=== PATIENT | female | born 1990 | race African-American/Black ===

== ENCOUNTER 2021-01-31 01:49 | Emergency (ER) | payer BC, SELFPAY ==
--- NOTE | ~2021-01-31 | XR_ITS ---
EXAMINATION: XR hand LT min 3V DATE: 01/31/2021 02:32 INDICATION: Left hand injury and pain. TECHNIQUE: 3 views of left hand were obtained. COMPARISON: None. FINDINGS: Bone alignment is normal. There are nondisplaced extra-articular stellate fractures of thir d and fourth distal phalanges. Joint spaces are normal. IMPRESSION: 1. Nondisplaced extra-articular stellate fractures of third and fourth distal phalanges. Reviewed, dictated and finalized at location A. IMPRESSION: 1. Nondisplaced extra-articular stellate fractures of third and fourth distal p halanges.
[2021-01-31 01:57] VITALS: BP 134/82; PULSE 108; RESP 17; TEMP 36.5; O2SAT 96
[2021-01-31] MEDS: HYDROcodone/acetaminophen (*CRX) 5-325 MG TABLET 1 TAB PO (02:45)
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
[2021-01-31] MEDS: CEPHALEXIN 500 MG CAPSULE PO (04:04)
== END 2021-01-31 04:21 | disposition home or self-care (01) ==
PROVIDERS: Emergency Provider Emergency Medicine
DX: S61.213A Laceration without foreign body of left middle finger without damage to nail, initial encounter (principal); S61.215A Laceration without foreign body of left ring finger without damage to nail, initial encounter; S62.663A Nondisplaced fracture of distal phalanx of left middle finger, initial encounter for closed fracture; S62.665A Nondisplaced fracture of distal phalanx of left ring finger, initial encounter for closed fracture; W23.0XXA Caught, crushed, jammed, or pinched between moving objects, initial encounter
CPT/HCPCS: 12001; 29130; 73130; 99283; 99284; A9270

== ENCOUNTER 2022-05-24 12:31 | Observation (INO) | payer OTHER, SELFPAY ==
[2022-05-24] VITALS (26 sets, daily range): BP systolic 108–119; BP diastolic 63–71; PULSE 74–99; O2SAT 95–100; BMI 37.3
--- NOTE | 2022-05-24 12:40 | OBADM ---
This patient, Olivia Agarwal, admitted to the OB room OB Post 116 for observation. Patient/family oriented to hospital policies and general routines including ID bracelet, bed and alarms, visiting hours, pain management, procedures, bathroom and other care routines, personal items, smoking policy, room service/diet, and visiting hours. Patient/Family are encouraged to report perceived risks to care and to ask questions if they do not understand what they are told or what they should do.
--- NOTE | 2022-05-24 13:41 | PC.NURSE ---
Dr Lindsay notified of adm c/o, VS, Lung sounds, FHt's and accucheck. Order for CBC and PO hydrate.
[2022-05-24 14:03] LABS: Basophils Percent Auto 0.1 % (0.2-1.2); Eosinophils Absolute Auto 0.2 K/mm3 (0-0.3); Eosinophils Percent Auto 2.4 % (0-4.4); Hematocrit 30.5 % (37.0-47.0); Hemoglobin 10.2 g/dL (12.0-15.0); Immature Granulocyte Absolute 0.06 K/mm3 (0.00-0.031); Immature Granulocyte Percent A 0.6 % (0-0.5); Lymphocytes Absolute Auto 1.49 K/mm3 (0.9-3.2); Lymphocytes Percent Auto 15.7 % (18.3-44.2); Mean Corpuscular HGB Conc 33.4 g/dl (32-36); Mean Corpuscular Hemoglobin 29.1 pg (26-34); Mean Corpuscular Volume 86.9 fl (80-100); Mean Platelet Volume 9.9 fl (7.4-10.4); Monocytes Absolute Auto 0.8 K/mm3 (0.1-0.6); Monocytes Percent Auto 8.2 % (2.6-8.5); Neutrophils Absolute Auto 6.9 K/mm3 (1.3-6.7); Platelet Count Result 228 k/mm3 (150-375); Red Blood Count 3.51 M/mm3 (4.2-5.4); Red Cell Distribution Width 13.5 % (11.5-14.5); White Blood Count 9.5 K/mm3 (4.5-10.0)
--- NOTE | 2022-05-24 14:23 | PC.NURSE ---
Dr Lindsay notified of CBC results and a slight improvement in dizziness. Ok to dc home and if patient feels like she needs further evaluation she is welcome to be evaluated in the ER.
[2022-05-24 15:45] LABS: Glucose Point of Care 102 mg/dl (65-105)
--- NOTE | 2022-05-26 07:30 | PM.OBTRLD ---
OB - Triage/Final Diagnosis Visit Information Comments/Additional reasons for admission: I have assessed the risk for this patient, Olivia Agarwal, and determined that she would benefit from observation care. Evaluation Laboratory results: Laboratory Tests 05/24/22 05/24/22 13:00 13:52 WBC 9.5 RBC 3.51 L Hgb 10.2 L Hct 30.5 L MCV 86.9 MCH 29.1 MCHC 33.4 RDW 13.5 Plt Count 228 MPV 9.9 Immature Gran % (Auto) 0.6 H Neut % (Auto) 73.0 Lymph % (Auto) 15.7 L [place] % (Auto) 8.2 Eos % (Auto) 2.4 Baso % (Auto) 0.1 L Lymph # (Auto) 1.49 [place] # (Auto) 0.8 H Eos # (Auto) 0.2 Baso # (Auto) 0.0 Abs Immat Gran (auto) 0.06 H Absolute Neuts (auto) 6.9 H Absolute Nucleated RBC 0.0 Nucleated RBC % 0.0 POC Capillary Glucose 102 Final Diagnosis (1) Dizziness: Code(s): R42 - Dizziness and giddiness Status: Acute (2) Twin : Code(s): O30.009 - Twin , unspecified number of placenta and unspecified number of amniotic sacs, unspecified trimester Status: Acute
== END 2022-05-24 14:37 | disposition home or self-care (01) ==
PROVIDERS: Admitting Provider Obstetrics & Gynecology; Visit Provider Obstetrics & Gynecology
DX: O26.892 Other specified pregnancy related conditions, second trimester (principal); R42 Dizziness and giddiness; O30.002 Twin pregnancy, unspecified number of placenta and unspecified number of amniotic sacs, second trimester; Z3A.23 23 weeks gestation of pregnancy
CPT/HCPCS: 36415; 82948; 85025; G0378; G0379

== ENCOUNTER 2022-09-07 08:26 | Outpatient (CLI) | payer BC, SELFPAY ==
[2022-09-07 09:50] LABS: Hematocrit 37.1 % (37.0-47.0); Hemoglobin 12.3 g/dL (12.0-15.0); Mean Corpuscular HGB Conc 33.2 g/dl (32-36); Mean Corpuscular Hemoglobin 28.5 pg (26-34); Mean Corpuscular Volume 85.9 fl (80-100); Mean Platelet Volume 10.4 fl (7.4-10.4); Platelet Count Result 228 k/mm3 (150-375); Red Blood Count 4.32 M/mm3 (4.2-5.4); Red Cell Distribution Width 15.5 % (11.5-14.5); White Blood Count 5.9 K/mm3 (4.5-10.0)
[2022-09-08 16:22] LABS: Rapid Plasma Reagin Non-Reactive (NonReactive)
== END 2022-09-07 08:27 | disposition home or self-care (01) ==
LOC: ANHLAB 08:29
PROVIDERS: Visit Provider Obstetrics & Gynecology
DX: O30.003 Twin pregnancy, unspecified number of placenta and unspecified number of amniotic sacs, third trimester (principal); Z3A.00 Weeks of gestation of pregnancy not specified
CPT/HCPCS: 36415; 85027; 86592; 86850; 86900; 86901

== ENCOUNTER 2022-09-07 20:30 | Inpatient (IN) | payer BC, SELFPAY ==
[2022-09-07] VITALS (10 sets, daily range): BP systolic 111–118; BP diastolic 58–62; PULSE 81–95; O2SAT 97–99; BMI 40.3
--- NOTE | 2022-09-07 20:32 | ECG_ITS ---
Measurements Intervals [place] Rate: 102 P: 47 CO: 152 QRS: 59 QRSD: 82 T: 0 QT: 311 QTc: 405 Interpretive Statements NORMAL SINUS RHYTHM NONSPECIFIC T-WAVE CHANGES NO PRIOR TRACING FOR COMPARISON Electronically Signed On 09-08-2022 12:51:51 DATA MANAGEMENT SPECIALIST by Ambreen Childs M.D.
[2022-09-08] VITALS (51 sets, daily range): BP systolic 81–119; BP diastolic 22–91; PULSE 53–144; RESP 12–16; TEMP 36.2–37; O2SAT 96–100
--- NOTE | 2022-09-08 01:54 | LDADM ---
This patient, Olivia Agarwal, was admitted to Labor/Delivery/Recovery 120 on 09/07/22 at 20:44. Plans for labor, pain management and were discussed with patient. Patient/family oriented to hospital policies and general routines including ID bracelet, bed and alarms, visiting hours, pain management, procedures, bathroom and other care routines, personal items, smoking policy, room service/diet and guest tray routines, security routines, and visiting hours. Patient/Family are encouraged to report perceived risks to care and to ask questions if they do not understand what they are told or what they should do. See OBIX for further documentation.
[2022-09-08] MEDS: LACTATED RINGERS 1,000 ML 125 ML IV CONT ×2 (06:18→07:25)
--- NOTE | 2022-09-08 06:26 | PC.NURSE ---
Addendum entered by Sierra Stauffer RN 09/08/22 06:30: This assessment was done 09/07/22 at 2100. Original Note: Patient presented to the Er with SOB, Palpatations and tachycardia and some cramping. EKG was performed in the ER and read by the ER MD. Patient was then send to OB for evaluation. Patient's HR on adm was in the 90's, mild shortness of breath was noted. Heart rate was reg on osculation and lungs were clear. Patient is scheduled to have a c/s tomorrow morning at 0730. Plan of care discussed.
--- NOTE | 2022-09-08 07:12 | P.PNAN_ITS ---
Anes - Initial Pre Proc Eval Procedure: Operation Date: 09/08/22 07:30 Proposed Procedures p Section - Verona Lindsay MD Date/Time: 09/08/22 07:12 Surgeon: Verona Lindsay MD Pre Op Diagnosis: SOB, Tachycardia Patient Data Age: 31 Gender: F Height: 1.73 m Weight: 120.3 kg Last Vital Signs Pulse 89 09/08/22 06:54 BP 111/68 09/08/22 06:54 Pulse Ox 97 09/07/22 21:38 O2 Del Method Room Air 09/07/22 21:30 Allergies Allergy/AdvReac Type Severity Reaction Status Date / Time No Known Allergies Allergy Verified 09/07/22 20:33 Home Medications Medication Instructions Recorded Confirmed Type aspirin 81 mg capsule 81 mg DAILY 05/24/22 05/24/22 History ferrous sulfate 142 mg (45 mg 142 mg PO DAILY 05/24/22 05/24/22 History iron) tablet,extended release (Slow Fe) vits no.126-ferrous fum 1 tablet DAILY 05/24/22 05/24/22 History 28 mg iron-folic acid 800 mcg tablet (Classic ) folic acid 1 mg tablet 1 mg PO DAILY 08/19/22 08/19/22 History Patient hx anesthesia problems: other (hx of high spinal) Family hx anesthesia problems: none Results Review: All pre-operative results and documents have been reviewed as part of the pre- operative evaluation. [facility] Past Medical History Medical History (Updated 05/26/22 @ 07:31 by Verona Lindsay MD) Patient denies significant medical history Surgical History Surgical History (Updated 09/08/22 @ 07:12 by Melo Powell MD) H/O laparoscopy History of section Family History Family History Father Hypertension Grandparent Breast cancer Grandparent Breast cancer Social History Social History Smoking status: Never smoker Substance use: never Lack of Transportation: No Lack of Food: Never True Current Housing: I Have Housing Concerned About Future Housing: No Difficulty Paying Gas/Electric Bills: No Difficulty Paying for Meds: No Currently Unemployed: No Education: Decline to Answer Difficulty w/ Childcare or Family Care: No Spiritual care concerns: No Anes - Eval Final PreProcedure Day of Procedure 09/08/22 07:12 Patient weight: obese Heart: regular rate and rhythm Lungs: clear to auscultation Airway: Mallampati scale class II Neurological: alert and oriented Last oral intake: >/= 8 hours ASA classification: II Emergent: no Anesthetic plan: proceed Anesthesia type and monitoring: regional spinal and standard monitoring Results Review: All pre-operative results and documents have been reviewed as part of the pre- operative evaluation. Informed Consent: The patient's anesthetic plan and its attendant risks and benefits were discussed with the patient/family/POA. Questions were solicited and answers provided to the satisfaction of the patient/family/POA.
--- NOTE | 2022-09-08 07:24 | PM.IMHP ---
H&P: HPI History of Present Illness Date/Time: 09/08/22 07:24 Chief Complaint: R CS twins Narrative: Olivia is a 31yo at 38.4 for repeat CS. She has a di/di spontaneous twin that has otherwise been uncomplicated. She did present last night to the ED with SOB that started with feeling of heart beating out of her chest. Workup was negative and sx resolved, she feels well this am. Review of Systems Review of Systems: All systems reviewed & are unremarkable except as noted in HPI and below PMFSH Past Medical History Medical History (Updated 09/08/22 @ 07:26 by Verona Lindsay MD) Patient denies significant medical history Surgical History Surgical History (Updated 09/08/22 @ 07:26 by Verona Lindsay MD) H/O laparoscopy History of section Family History Family History Father Hypertension Grandparent Breast cancer Grandparent Breast cancer Social History Social History Smoking status: Never smoker Substance use: never Lack of Transportation: No Lack of Food: Never True Current Housing: I Have Housing Concerned About Future Housing: No Difficulty Paying Gas/Electric Bills: No Difficulty Paying for Meds: No Currently Unemployed: No Education: Decline to Answer Difficulty w/ Childcare or Family Care: No Spiritual care concerns: No Meds Home Medications and Allergies Home Medications Medication Instructions Recorded Confirmed Type aspirin 81 mg capsule 81 mg DAILY 05/24/22 05/24/22 History ferrous sulfate 142 mg (45 mg 142 mg PO DAILY 05/24/22 05/24/22 History iron) tablet,extended release (Slow Fe) vits no.126-ferrous fum 1 tablet DAILY 05/24/22 05/24/22 History 28 mg iron-folic acid 800 mcg tablet (Classic ) folic acid 1 mg tablet 1 mg PO DAILY 08/19/22 08/19/22 History Allergies Allergy/AdvReac Type Severity Reaction Status Date / Time No Known Allergies Allergy Verified 09/07/22 20:33 Vital Signs Vital Signs - 24 hr 09/07/22 21:08 09/07/22 21:13 09/07/22 21:15 Pulse Rate 95 Blood Pressure 111/62 Blood Pressure [Left Arm] Pulse Oximetry 98 98 Oxygen Delivery 09/07/22 21:18 09/07/22 21:23 09/07/22 21:28 Pulse Rate Blood Pressure Blood Pressure [Left Arm] Pulse Oximetry 99 98 97 Oxygen Delivery 09/07/22 21:30 09/07/22 21:33 09/07/22 21:38 Pulse Rate 86 Blood Pressure 114/59 L Blood Pressure [Left Arm] Pulse Oximetry 98 97 Oxygen Delivery 09/08/22 02:30 09/08/22 02:45 09/08/22 06:28 Pulse Rate 82 72 89 Blood Pressure 116/68 119/65 111/68 Blood Pressure [Left Arm] Pulse Oximetry Oxygen Delivery 09/07/22 21:30 09/08/22 02:55 09/07/22 21:42 Pulse Rate 77 89 Blood Pressure Blood Pressure [Left Arm] 116/68 118/58 L Pulse Oximetry Oxygen Delivery Room Air 09/08/22 06:54 Pulse Rate 89 Blood Pressure Blood Pressure [Left Arm] 111/68 Pulse Oximetry Oxygen Delivery Exam Const: General: no acute distress Resp: Effort & Inspection: normal respiratory effort Auscultation: clear to auscultation bilaterally Cardio: Rate: regular rate Rhythm: regular rhythm GI: GI Palp: Yes Soft to palpation Extrem: General: normal to inspection Assessment and Plan Assessment and plan (1) Dichorionic diamniotic twin gestation: Code(s): O30.049 - Twin , dichorionic/diamniotic, unspecified trimester Status: Acute (2) History of delivery: Code(s): Z98.891 - History of uterine scar from previous surgery Status: Acute Plan SOB resolved- likely related to palpitations and/or anxiety FHT category 1 x2 Consented for CS after discussing RBA, will proceed GBS pos
[2022-09-08] MEDS: ceFAZolin 3 GM/D5W 100 ML 100 ML IVPB (07:25)
--- NOTE | 2022-09-08 08:36 | PM.OBPRVD ---
OB - Delivery Note Procedure Delivery date: 09/08/22 Procedure: Procedures Operation Date: 09/08/22 07:30 <No data on this case meets the specified criteria> repeat low transverse section Events: Breech Presentation (x2) and Multiple Gestation Route of delivery: Specimen: Yes (placenta) Quantitative Blood Loss (ml): 920 Anesthesia type: Spinal Disposition: Floor Complications: none Narrative: The patient was taken to the OR and received spinal anesthesia. She was placed in dorsal supine position with left lateral tilt. SCDs and acosta were placed. She was prepped and draped in the normal sterile fashion. A Pfannensteil skin incision was made through her prior scar, a small portion of keloid excised, and carried through to the underlying layer of fascia. The fascia was incised in the midline and then extended laterally using Felix scissors. The muscles were in the midline and the peritoneum was entered bluntly. The peritoneal incision was extended inferiorly and superiorly with care to avoid the bladder. The bladder blade was then inserted, the vesicouterine peritoneum was grasped, incised with Metzenbaum scissors, and a bladder flap created. The bladder blade was reinserted. A low transverse uterine incision was made with a scalpel and extended bluntly. AROM was performed on baby A and fluid was noted to be clear. The baby was delivered breech without difficulty. The baby's oropharynx was suctioned. After 30 seconds, the cord was clamped and cut and the infant was handed off. AROM was performed on baby B and the fluid was clear. Baby was delivered in breech presentation without difficulty. After delayed cord clamping the baby was handed off. Cord blood was obtained and the placenta was then removed manually. The uterus was exteriorized. A moist lap sponge was used to curette the endometrium. The uterine incision was then closed with two layers of 0-Vicryl in a running, locking fashion. Good hemostasis was noted after one additional [id number] suture. The posterior cul de sac was irrigated with normal saline and cleared of all clot and debris. The uterus was returned to the abdomen. Both lateral gutters were then irrigated. The rectus muscles were inspected and found to be hemostatic. The fascia was reapproximated using 0-Vicryl in running fashion. The subcutaneous tissue was irrigated with normal saline and made hemostatic with Bovie electrocautery. The skin was then closed with absorbable emely. Steri strips and a bandage were applied. The uterus was evacuated. The patient tolerated the procedure very well. All counts were correct. She was taken to the recovery room in good condition. Baby Date of : 09/08/22 Time of : 07:58 Weeks of gestation at delivery: 38 Infant gender: Female Weight (pounds): 6 Weight (ounces): 9 presentation: breech Placenta delivery description: Manual Removal Cord Vessel Description: 3 Vessels and Delayed Cord Clamping score one minute: 8 score five minutes: 9 Twins 2: Date of : 09/08/22 Time of : 08:00 Weeks of gestation at delivery: 38 gender: Female Weight (pounds): 6 Weight (ounces): 3 presentation: breech Placental delivery description: Manual Removal Cord Vessel Description: 3 Vessels and Delayed Cord Clamping score one minute: 9 score five minutes: 9
[2022-09-08] MEDS: OXYTOCIN 30 UNITS/NS 500 ML 30 UNITS/500 ML BAG 125 UNITS IV CONT (09:09)
--- NOTE | 2022-09-08 12:07 | PC.NURSE ---
On 09/08/22, the student, Jarrell, provided care and completed [facility] documentation on this patient. I have reviewed the student's documentation and agree with the findings.
[2022-09-08] MEDS: DEXTROSE 5%/0.45% SOD CHL 1,000 ML 125 ML IV CONT (13:11)
[2022-09-08] MEDS: KETOROLAC 30 MG/ML VIAL (*BKC) IV PUSH (13:11)
[2022-09-08] MEDS: SIMETHICONE 80 MG TAB.CHEW PO ×2 (13:11→17:33)
[2022-09-08] MEDS: diphenhydrAMINE HCl INJ 50 MG/ML VIAL 25 MG IV PUSH ×2 (13:47→19:35)
--- NOTE | 2022-09-08 14:21 | PC.NURSE ---
[id number] Introductions were made, then consulted with patient to assess needs related to after nursery RN called for assistance to room 120. Twin baby Debby Gonsales was latched with long draws, good suck/swallow/pausing was visualized and mother denied pain. Infant was detached related to the appearance of the nipple in the front of the infant's mouth. The nipple was not misshaped and was in the front of the mouth. It was reported that the infant had breastfed for 10 minutes and may be finished for now. [id number] Consulted with patient to assess needs related to . Mother works well with her infant with encouragement and is eager to learn. Reviewed working with infant, supporting breast and how to protect the nipples with an optimal deep latch, good/ different positioning, and good hand washing. Encouraged understanding the benefits of skin to skin, responding to feeding cues, frequencies of feeding 8-12 times in 24 hours (approximately 2-3 hours), duration of feedings, milk production, intake/output feeding sheet and signs of adequate intake encouraging swallowing at the breast. Reviewed the first 24 hours is a bit more challenging as the infants might be sleepy. Reviewed positioning and alignment, supporting breast, off-centered (asymmetrical latch) and leading with the chin with big, open, wide gape. Both infants were placed skin to skin and attempted at the breast. Twin Debby Gonsales is spitty and gagged up clearing fluid. Neither latched optimally at this time. Twin Edwardo Jade would demonstrate feeding cues, then when brought to the breast would not open with a big, wide gape. Nipple care reviewed with optimal latch, good positioning and using clean hands when feeding her infant and touching her breast. The skill of hand expressions was taught and mother demonstrated learning. Both infants were spoon fed 1/2 tsp of colostrum. Discussed the options of hand expression, manual expression and electric pumping. Mother hand expressed an additional 5mls of colostrum which were divided between two syringes and stored at room temperature for the next feeding if needed. Resources used to facilitate learning were used from the tool, mom and baby guide. Mother voiced understanding of the education shared, to call for assistance if the does not latch or if there is discomfort with . Reported to the primary RN.
--- NOTE | 2022-09-08 15:03 | OBPPTRN ---
1057-Patient transferred to post room #277 via stretcher. Support person present. Oriented to unit, room, information board, rooming in, admission packet and security measures. Patient verbalizes understanding.
--- NOTE | 2022-09-08 15:35 | PC.NURSE ---
[id number] Consulted with patient to assess needs related to . Mother works well with her infant. Reviewed working with , supporting breast and how to protect the nipples with an optimal deep latch and good positioning. Encouraged understanding the benefits of skin to skin, responding to feeding cues, frequencies of feeding 8-12 times in 24 hours (approximately 2-3 hours), duration of feedings, milk production, intake/output feeding sheet and signs of adequate intake encouraging swallowing at the breast. Reviewed positioning and alignment, supporting breast, off-centered (asymmetrical latch) and leading with the chin with big, open, wide gape. [place] Twin A was syringe fed 1ml of colostrum, then after a few attempts of stimulating with burping, massage touch and changing positions she latched optimally to the right breast in cross cradle position but gags and doesn't breastfeed. [place] Twin B is gaggy, spitty, sleepy and reluctant to wake and eat. Human milk was hand expressed by mother to syringe feed to her infants if they do not breastfeed. Mother voiced understanding of the education shared, to call for assistance if the infant does not latch or if there is discomfort with . Reported to the primary RN.
[2022-09-08] MEDS: HYDROcodone/acetaminophen (*CRX) 5-325 MG TABLET 1 TAB PO ×2 (17:33→22:02)
[2022-09-08] MEDS: DOCUSATE SODIUM 100 MG CAPSULE PO (17:33)
[2022-09-08] MEDS: IBUPROFEN 600 MG TABLET PO (19:34)
[2022-09-09 00:15] VITALS: BP 94/53; PULSE 79; RESP 16; TEMP 37.1; O2SAT 95
[2022-09-09] MEDS: HYDROcodone/acetaminophen (*CRX) 5-325 MG TABLET 1 TAB PO ×2 (01:54→04:57)
[2022-09-09] MEDS: SIMETHICONE 80 MG TAB.CHEW PO ×6 (01:58→22:34)
[2022-09-09] MEDS: IBUPROFEN 600 MG TABLET PO ×2 (04:57→11:21)
[2022-09-09 05:10] VITALS: BP 104/55; PULSE 89; RESP 18; TEMP 36.9; O2SAT 99
[2022-09-09 05:31] LABS: Basophils Percent Auto 0.1 % (0.2-1.2); Eosinophils Absolute Auto 0.1 K/mm3 (0-0.3); Eosinophils Percent Auto 1.4 % (0-4.4); Hematocrit 30.2 % (37.0-47.0); Immature Granulocyte Absolute 0.03 K/mm3 (0.00-0.031); Immature Granulocyte Percent A 0.4 % (0-0.5); Mean Corpuscular HGB Conc 33.1 g/dl (32-36); Mean Corpuscular Volume 84.6 fl (80-100); Mean Platelet Volume 10.7 fl (7.4-10.4); Monocytes Absolute Auto 0.8 K/mm3 (0.1-0.6); Monocytes Percent Auto 10.4 % (2.6-8.5); Neutrophils Absolute Auto 5.8 K/mm3 (1.3-6.7); Neutrophils Percent Auto 73.7 % (45.5-73.1); Platelet Count Result 168 k/mm3 (150-375); Red Blood Count 3.57 M/mm3 (4.2-5.4); Red Cell Distribution Width 15.1 % (11.5-14.5); White Blood Count 7.9 K/mm3 (4.5-10.0)
[2022-09-09 07:30] VITALS: BP 114/64; PULSE 99; RESP 14; TEMP 36.8; O2SAT 99
--- NOTE | 2022-09-09 07:30 | PC.NURSE ---
PT introductions made and plan of care discussed per post op c section, pain management, breast feeding, daily care activities. PT sole recipient of such instructions and no barriers to learning identified at this time. PT received such instructions this shift per one to one discussion, mom baby care guide and demonstrations. PT verbalized understanding of such care.
--- NOTE | 2022-09-09 08:11 | P.PNOB_ITS ---
OB - PN: Subj Subjective Date/time seen: 09/09/22 08:11 Patient comments: no complaints, pain well controlled, tolerating diet and flatus present [place] baby status: doing well OB - PN: Obj Data Labs 09/09/22 04:54 Labs: Laboratory Results - last 24 hr 09/09/22 04:54 WBC 7.9 RBC 3.57 L Hgb 10.0 L Hct 30.2 L MCV 84.6 MCH 28.0 MCHC 33.1 RDW 15.1 H Plt Count 168 MPV 10.7 H Immature Gran % (Auto) 0.4 Neut % (Auto) 73.7 H Lymph % (Auto) 14.0 L [place] % (Auto) 10.4 H Eos % (Auto) 1.4 Baso % (Auto) 0.1 L Lymph # (Auto) 1.10 [place] # (Auto) 0.8 H Eos # (Auto) 0.1 Baso # (Auto) 0.0 Abs Immat Gran (auto) 0.03 Absolute Neuts (auto) 5.8 Absolute Nucleated RBC 0.0 Nucleated RBC % 0.0 OB - PN A/P Plan day: 1 Plan: routine care Time Spent With Patient Time: Total time spent is greater than 50% in coordination of care (as documented) at patient's floor/unit and/or counseling patient: Time with patient: less than 15 minutes Review of Systems Review of Systems: All systems reviewed & are unremarkable except as noted in HPI and below Exam Narrative: Fundus firm. Vaginal flow controlled. Incision dry and intact. Negative homans. No redness, warmth, or pain of lower ext. Const: General: comfortable Chest: Breast/axilla inspection: normal inspection of the breasts Resp: Effort & Inspection: normal respiratory effort Auscultation: clear to auscultation bilaterally Cardio: Rate: regular rate GI: GI Palp: Yes Soft to palpation Psych: Appearance: grossly normal Affect: normal affect Attitude: cooperative Thought content: Yes Normal thought content present Judgement: Good judgement present (Psych)
--- NOTE | 2022-09-09 08:38 | WPDANLDPN2 ---
Anes-Prog Note L&D Date/Time: 09/09/22 08:38 Comfortable throughout: section Neuraxial method: spinal Epidural/Spinal procedure site: clean & non-tender Neuro status: Neuro function grossly intact. Cardiovascular status: normal Respiratory status: normal Airway patency: baseline Mental status: baseline Post-Op hydration status: normal Vital Signs: Last Vital Signs Temp 98.4 F 09/09/22 05:10 Pulse 89 09/09/22 05:10 Resp 18 09/09/22 05:10 BP 104/55 L 09/09/22 05:10 Pulse Ox 99 09/09/22 05:10 O2 Del Method Room Air 09/08/22 11:15 Pain score (VAS): 5 I/O: Intake & Output 09/08/22 09/09/22 09/09/22 23:59 07:59 15:59 Intake Total 1615 1200 Output Total 300 4100 Balance 1315 -2900 Post-procedural complaints: none Patient feedback: Patient satisfied with anesthetic care.
--- NOTE | 2022-09-09 08:39 | WPDANLDNPN2 ---
Anes-Prog Note L&D-Neuraxial Date/Time: 09/09/22 08:39 Neuraxial medications: intrathecal PF morphine Opiod-related complaints: none Patient feedback: Patient satisfied with post-operative pain management.
[2022-09-09] MEDS: DOCUSATE SODIUM 100 MG CAPSULE PO ×2 (08:53→18:36)
[2022-09-09] MEDS: MULTIVIT/MIN/PREN/FOL AC/IRON TABLET 1 TAB PO (08:53)
[2022-09-09] MEDS: HYDROcodone/acetaminophen (*CRX) 10-325 MG TABLET 1 TAB PO ×3 (08:57→14:26)
--- NOTE | 2022-09-09 15:15 | PC.NURSE ---
[id number] Consulted with mother to assess needs. Mother is in the restroom and infants are in the nursery. Mother states she is concerned about her supply and mentioned Twin Debby Gonsales latched last night. Mother will call for assistance with the next . [phone] Consulted with patient to assess needs related to . Mother demonstrated her experience with working with her babies. Reviewed supporting breast and how to protect the nipples with an optimal deep latch, good positioning and good hand washing. Encouraged understanding the benefits of skin to skin, responding to feeding cues, frequencies of feeding 8-12 times in 24 hours (approximately 2-3 hours), duration of feedings, milk production, intake/output reviewing the pie demonstration and signs of adequate intake listening and watching for swallowing at the breast. Reviewed positioning and alignment, supporting breast, off-centered (asymmetrical latch) and leading with the chin with big, open, wide gape. Infant nai Gonsales latched optimally to the left breast in football position for 10 minutes without pain to mother or misshaping the nipple. Mother and RN visualized and heard swallowing. After 5 minutes twin Edwardo Jade was demonstrating feeding cues so she was put back to the breast after having an earlier 10 minute breastfeed. Twin Edwardo Jade was latched to the right breast using football positioning and she breastfed for an additional 20 minutes with swallowing, no pain to mother and no misshaped nipple when she detached. Nipple care reviewed with optimal latch, good positioning and using clean hands when feeding her infant and touching her breast. Resources used to facilitate learning were used from the tool, mom and baby guide. Mother voiced understanding of the education shared, to call for assistance if the infant does not latch or if there is discomfort with . Reported to the primary RN.
[2022-09-09] MEDS: oxyCODONE/ACETAMINOPHEN (*CRX) 10-325 MG TABLET 1 TAB PO ×2 (18:36→22:34)
[2022-09-09 18:40] VITALS: BP 127/65; PULSE 77; RESP 18; TEMP 36.6; O2SAT 100
[2022-09-10] MEDS: KETOROLAC 10 MG TABLET PO ×4 (00:26→21:31)
[2022-09-10] MEDS: SIMETHICONE 80 MG TAB.CHEW PO ×6 (02:36→23:30)
[2022-09-10] MEDS: oxyCODONE/ACETAMINOPHEN (*CRX) 10-325 MG TABLET 1 TAB PO ×2 (02:36→07:16)
[2022-09-10 07:07] VITALS: BP 105/67; PULSE 73; RESP 18; TEMP 36.7; O2SAT 98
[2022-09-10] MEDS: MULTIVIT/MIN/PREN/FOL AC/IRON TABLET 1 TAB PO (07:16)
[2022-09-10] MEDS: DOCUSATE SODIUM 100 MG CAPSULE PO ×2 (07:16→15:25)
--- NOTE | 2022-09-10 07:26 | PM.OBPNVD ---
OB - PN: Subj Subjective Date/time seen: 09/10/22 07:26 Patient comments: no complaints and incisional pain [place] baby status: doing well and nursing well [place] feeding status: exclusively breast feeding Narrative: Pain significant on norco 10s, also gas pain, milk in, nursing twins well. OB - PN: Obj Data Labs 09/09/22 04:54 OB - PN A/P Assessment and Plan (1) Dichorionic diamniotic twin gestation: Code(s): O30.049 - Twin , dichorionic/diamniotic, unspecified trimester Status: Acute (2) delivery delivered: Code(s): O82 - Encounter for delivery without indication Status: Acute Plan day: 2 Plan: routine care Comments: Home tomorrow simethicone, ambulation Time Spent With Patient Time: Total time spent is greater than 50% in coordination of care (as documented) at patient's floor/unit and/or counseling patient: Exam Narrative: NAD abdomen soft, appropriately tender, incision CDI Extremities nontender with 1+ edema
[2022-09-10] MEDS: oxyCODONE/ACETAMINOPHEN (*CRX) 5-325 MG TABLET 1 TABLET PO ×4 (11:21→23:30)
--- NOTE | 2022-09-10 13:41 | PC.NURSE ---
[id number] Consulted with patient to assess needs related to her twin girls. Mother led conversation with her experience with feeding baby so far. Mother works well with her infants. Mother believes she has both infants latched effectively using the football positioning, however; assessment has RN concerned related to not visualizing swallowing with a good suck/swallow ratio, mouths are less than 90 degrees open, and twins fall to sleep easily at the breast. Reviewed working with infant, supporting breast and how to protect the nipples with an optimal deep latch and good positioning. Encouraged understanding the benefits of skin to skin, responding to feeding cues, frequencies of feeding 8-12 times in 24 hours (approximately 2-3 hours), duration of feedings, milk production, intake/output feeding sheet and signs of adequate intake encouraging swallowing at the breast. Reviewed positioning and alignment, supporting breast, off-centered (asymmetrical latch) and leading with the chin with big, open, wide gape. Twin A Kalie is more eager to go to the breast with behavior frantically looking for the breast. She is challenging to relax with her tongue down and mouth open. Twin B Dru is sleepy and reluctant. Mother was encouraged to feed her infants the colostrum she had pumped out of her breast and fed each twin 1.5mls of human milk. Reviewed rotating breast sides and twins to stimulate breast for a good milk supply. Twin B Dru relaxed, then latched optimally to the left breast and good suck/swallow ratios were reviewed. Reviewed watching for good suck/swallow ratios with mother. was able to maintain latch without discomfort to mother. Nipple care reviewed with optimal latch, good positioning and using clean hands when feeding her and touching her breast. Resources used to facilitate learning were used from the tool, [facility] website, mom and baby guide. Mother voiced understanding of the education shared, to call for assistance if the infants do not latch or if there is discomfort with . Reported to the primary RN. [id number] Consulted with mother to assess needs. Upon entering the room mother is attempting to latch Twin A Kalie to the left breast and is pumping the right breast. [place] is sleepy and reluctant. RN stimulated with changing positioning, massage touch, burping and syringe feeding the remainder of the breastmilk from a syringe that contained 3mls. was no longer frantic and crying. RN assisted mother with getting her infant to the left breast using football positioning to practice watching and listening for swallowing at the breast. Mother denies pain, mouth of is 130-150 degrees open, rounded cheek line, chin buried and nose near the breast. Reviewed with mother how to stimulate infant to maintain active effective . Pumping was assessed. Breast pump provided last evening due to Twin B having ineffective . Instructions given on cleaning, care, usage, that there should be no pain, pumping schedule for milk production, collection, and storage of human milk. Parents are encouraged to record pumping schedule on the feeding sheet. Patient was assessed for correct placement, flange size (she was using 24mm and it was changed to 28mm), to pump for comfort and nipple stretching/stimulation for adequate milk production every 3 hours (8 times in 24 hours) 1-2 times at night if infants are not latching and drinking at the breast. Mother voiced understanding of the education shared. Reported to the primary RN.
--- NOTE | 2022-09-10 15:59 | PC.NURSE ---
[id number] Consulted with patient to assess needs related to . RN assisted mother with her infants with stimulating for wakefulness to effectively breastfeed. Twin A and Twin B latched and effectively breastfed using the football position. Mother denied any pain with optimal latching. Mother voiced understanding to when to call for assistance if infants do not wake to eat every 2-3 hours, pain with latching and how to visualize and hear for swallowing at the breast. Infants were both content with arms and hands relaxed after . Reported to the primary RN.
[2022-09-11] MEDS: oxyCODONE/ACETAMINOPHEN (*CRX) 5-325 MG TABLET 1 TABLET PO ×5 (03:49→22:15)
[2022-09-11] MEDS: MULTIVIT/MIN/PREN/FOL AC/IRON TABLET 1 TAB PO (07:17)
[2022-09-11] MEDS: DOCUSATE SODIUM 100 MG CAPSULE PO ×2 (07:17→17:46)
[2022-09-11] MEDS: SIMETHICONE 80 MG TAB.CHEW PO ×2 (07:17→19:45)
[2022-09-11] MEDS: KETOROLAC 10 MG TABLET PO ×3 (07:17→19:46)
[2022-09-11 09:34] VITALS: BP 118/68; PULSE 95; RESP 18; TEMP 37.1; O2SAT 98
--- NOTE | 2022-09-11 09:34 | PM.OBPNVD ---
OB - PN: Subj Subjective Date/time seen: 09/11/22 09:34 day 3, incisional pain, taking norco 10, OB - PN: Obj Data Labs 09/09/22 04:54 OB - PN A/P Plan day: 3 Time Spent With Patient Time: Total time spent is greater than 50% in coordination of care (as documented) at patient's floor/unit and/or counseling patient: Review of Systems Review of Systems: All systems reviewed & are unremarkable except as noted in HPI and below Exam Narrative: Incision CDI Const: General: healthy appearing and comfortable
[2022-09-11] MEDS: polyethylene glycoL 3350 17 GM POWD.PACK PO (12:39)
[2022-09-11 15:58] VITALS: BP 116/71; PULSE 92; RESP 18; TEMP 36.4; O2SAT 99
[2022-09-11 20:00] VITALS: BP 126/70; PULSE 87; RESP 18; TEMP 36.9; O2SAT 99
[2022-09-12] MEDS: KETOROLAC 10 MG TABLET PO ×2 (02:40→09:56)
[2022-09-12] MEDS: SIMETHICONE 80 MG TAB.CHEW PO ×2 (02:40→09:55)
[2022-09-12] MEDS: oxyCODONE/ACETAMINOPHEN (*CRX) 5-325 MG TABLET 1 TABLET PO ×2 (04:51→09:55)
--- NOTE | 2022-09-12 08:25 | PM.OBPNVD ---
OB - PN: Subj Subjective Date/time seen: 09/12/22 08:25 day 4, discussed pain management OB - PN: Obj Data Labs 09/09/22 04:54 OB - PN A/P Plan day: 4 Plan: routine care and discharge home Time Spent With Patient Time: Total time spent is greater than 50% in coordination of care (as documented) at patient's floor/unit and/or counseling patient: Review of Systems Review of Systems: All systems reviewed & are unremarkable except as noted in HPI and below Exam Const: General: cooperative, healthy appearing and comfortable
--- NOTE | 2022-09-12 08:29 | PM.OBDSVD ---
DS: Admitting Diagnosis Discharge Date 09/12/22 Admitting Diagnosis section DS: Discharge Diagnosis Discharge Diagnosis (1) delivery delivered: Code(s): O82 - Encounter for delivery without indication Status: Acute OB - DS: Summary OB Procedures : None OB Procedures Intrapartum: OB Procedures: : None Peripartum Data Procedures: Procedures Operation Date: 09/08/22 07:30 Actual Procedure Side Surgeon p Section Not Applicable Verona Lindsay MD Time Spent with Patient Time attestation: Total time spent providing and/or coordinating discharge services: DS: Data Data Completed and Pending Completed studies during hospitalization: Pending at discharge 09/08/22 08:01 Surgical [PTH] Routine Discharge Plan Discharge Attending physician on discharge: Antonieta Guevara Discharging Clinician: Shanda Escobar Patient Disposition: Home, Self-Care Activity: pelvic rest Diet: regular Patient Instructions: Antibiotic Form Stand Alone Forms: General Discharge Information Follow-up/Referrals: Verona Lindsay MD [Physician] - Discharge Medications: New oxycodone-acetaminophen [Percocet] 5-325 mg tablet 1 tablet PO Q4H PRN (Reason: pain) Qty: 20 0RF ibuprofen 600 mg tablet 600 mg PO Q6H PRN (Reason: pain) Qty: 30 0RF Continued Slow Fe 142 mg (45 mg iron) Tablet Extended Release 142 mg PO DAILY Classic 28 mg iron- 800 mcg Tablet 1 tablet DAILY Discontinued folic acid 1 mg Tablet 1 mg PO DAILY aspirin 81 mg Capsule 81 mg DAILY Date of admission: 09/07/22 20:44 Primary Care Provider: Javi,Emeli Elmore Admitting Provider: Verona Lindsay Attending physician on admission: Verona Lindsay Condition: Stable
[2022-09-12] MEDS: polyethylene glycoL 3350 17 GM POWD.PACK PO (09:54)
[2022-09-12] MEDS: DOCUSATE SODIUM 100 MG CAPSULE PO (09:55)
[2022-09-12] MEDS: MULTIVIT/MIN/PREN/FOL AC/IRON TABLET 1 TAB PO (09:55)
[2022-09-12 09:56] VITALS: BP 125/76; PULSE 88; RESP 18; TEMP 36.6; O2SAT 98
[2022-09-13 09:56] VITALS: BP 125/77; PULSE 82; RESP 18; TEMP 36.8; O2SAT 100
== END 2022-09-12 13:58 | disposition home or self-care (01) | DRG 788 ==
LOC: ANHED 21:05 → ANHLDR 21:13 → ANHOB2 09-12 08:29 → ANHLDR 09-13 11:21 → ANHOB2 09-13 11:21
PROVIDERS: Admitting Provider Obstetrics & Gynecology; Emergency Provider Obstetrics & Gynecology; PCP Family Medicine; Visit Provider Advanced Practice Midwife
PROC: 10D00Z1 Extraction of Products of Conception, Low, Open Approach (ICD-10-PCS; CPT 59514; principal; 2022-09-08 07:30)
DX: O34.219 Maternal care for unspecified type scar from previous cesarean delivery (principal); O30.043 Twin pregnancy, dichorionic/diamniotic, third trimester; Z3A.38 38 weeks gestation of pregnancy; Z37.2 Twins, both liveborn; O32.1XX1 Maternal care for breech presentation, fetus 1; O99.824 Streptococcus B carrier state complicating childbirth; O32.1XX2 Maternal care for breech presentation, fetus 2
CPT/HCPCS: 36415; 59025; 85025; 88307; 93005; A9270; J0131; J0690; J1200; J1885; J2274; J2405; J2590; J7120